=== PATIENT | female | born 1995 | race Caucasian/White ===

== ENCOUNTER 2019-05-16 12:15 | Observation (INO) | payer BC ==
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
[2019-05-16] MEDS ORDERED: Lactated Ringers 1,000 ML IV ONE (12:38)
[2019-05-16 13:20] LABS: CHLORIDE,CL 104 mmol/L (98-107); SODIUM,NA 137 mmol/L (136-145)
[2019-05-16] MEDS ORDERED: Magnesium Sulfate/Water 2 GM in Premix Bag 1 BAG IV ONE (15:08)
[2019-05-16] MEDS: Lactated Ringers 1,000 ML IV SCH (15:22)
[2019-05-16] MEDS: Sodium Chloride 0.9% 10 ML Syringe FLUSH PRN (15:40)
[2019-05-16] MEDS: Sodium Chloride 0.9% 10 ML Syringe FLUSH SCH (19:52)
[2019-05-17] MEDS: Lactated Ringers 1,000 ML IV SCH ×3 (04:27→19:17)
[2019-05-17 07:52] LABS: CHLORIDE,CL 107 mmol/L (98-107); SODIUM,NA 140 mmol/L (136-145)
[2019-05-17] MEDS: Prenatal Multivitamin with Calcium/Folic Acid/Iron Tab PO SCH (08:10)
[2019-05-17] MEDS: FLUoxetine 20 MG Cap PO SCH (08:11)
[2019-05-17] MEDS: Sodium Chloride 0.9% 10 ML Syringe FLUSH SCH ×2 (08:11→19:16)
[2019-05-17] MEDS: Magnesium Oxide 400 MG Tab PO SCH (08:13)
[2019-05-17] MEDS ORDERED: Magnesium Sulfate/Water 2 GM in Premix Bag 1 BAG IV ONE ×2 (09:32→18:00)
[2019-05-17] MEDS: Acetaminophen 325 MG Tab PO PRN ×2 (13:00→19:30)
--- NOTE | 2019-05-17 14:30 | PCM.PN ---
- General Info Date of Service: 05/17/19 Admission Dx/Problem (Free Text): 1. Intrauterine with possible labor 2. Pelvic pain Functional Status: Reports: Pain Controlled, Tolerating Diet, Ambulating, Urinating. Denies: New Symptoms, Incentive Spirometry Pain Score: 2 - Review of Systems General: Reports: No Symptoms. Denies: Fever, Weakness, Fatigue, Malaise, Chills, Night Sweats, Appetite (Appetite good) HEENT: Denies: Dysphasia, Ear Pain, Eye Pain, Headaches, Post Nasal Drip, Sinus Congestion, Sore Throat, Rhinitis, Visual Changes Pulmonary: Reports: No Symptoms. Denies: Shortness of Breath, Pleuritic Chest Pain, Cough, Sputum, Hemoptysis, Wheezing Cardiovascular: Reports: No Symptoms. Denies: Chest Pain, Palpitations, Dyspnea on Exertion, Orthopnea, PND, Edema Gastrointestinal: Reports: Other (Occasional nonspecific right pelvic discomfort , which is reproducible.). Denies: Abdominal Pain, Constipation, Decreased Appetite, Diarrhea, Difficulty Swallowing, Flatus, Hematochezia, Melena, Nausea , Vomiting Genitourinary: Reports: No Symptoms. Denies: Dysuria, Frequency, Burning, Pain , Urgency, Incontinence, Hematuria, Retention, Flank Pain, Other Musculoskeletal: Reports: No Symptoms. Denies: Neck Pain, Shoulder Pain, Arm Pain, Back Pain Skin: Reports: No Symptoms. Denies: Jaundice, Diaphoresis, Bruising, Pruritis, Rash Neurological: Reports: No Symptoms. Denies: Confusion, Dizziness, Headache, Numbness, Paresthesia, Tingling, Tremors, Difficulty Walking, Weakness Psychiatric: Denies: Confusion, Depression, Anxiety, Agitation, Cravings, Hallucinations, Homicidal Ideation - Patient Data Vitals - Most Recent: Last Vital Signs Temp 36.6 C 05/17/19 13:23 Pulse 90 05/17/19 13:23 Resp 16 05/17/19 13:23 BP 131/76 05/17/19 13:23 Pulse Ox 100 05/17/19 13:23 Vital Signs - 24 hr 05/16/19 05/16/19 05/16/19 15:03 15:37 15:52 Temperature [ Temporal] Pulse, 84 82 Peripheral [ Pulse Oximetry] Respiratory 16 16 Rate Blood Pressure [Left Upper Arm ] Blood Pressure 112/52 L 110/59 L [Right Arm] O2 Sat by Pulse 100 100 100 Oximetry 05/16/19 05/16/19 05/16/19 16:25 16:40 17:10 Temperature [ Temporal] Pulse, 95 97 98 Peripheral [ Pulse Oximetry] Respiratory 18 16 16 Rate Blood Pressure [Left Upper Arm ] Blood Pressure 121/71 113/62 112/61 [Right Arm] O2 Sat by Pulse 100 100 100 Oximetry 05/16/19 05/17/19 05/17/19 19:49 00:00 04:00 Temperature [ 37.1 C 36.9 C 36.6 C Temporal] Pulse, 89 77 74 Peripheral [ Pulse Oximetry] Respiratory 16 16 16 Rate Blood Pressure 105/51 L 116/54 L 110/58 L [Left Upper Arm ] Blood Pressure [Right Arm] O2 Sat by Pulse 98 98 100 Oximetry 05/17/19 05/17/19 05/17/19 07:35 09:46 11:41 Temperature [ 36.7 C 36.6 C 36.5 C Temporal] Pulse, 79 84 82 Peripheral [ Pulse Oximetry] Respiratory 16 17 16 Rate Blood Pressure 116/61 126/70 122/64 [Left Upper Arm ] Blood Pressure [Right Arm] O2 Sat by Pulse 98 100 100 Oximetry 05/17/19 13:23 Temperature [ 36.6 C Temporal] Pulse, 90 Peripheral [ Pulse Oximetry] Respiratory 16 Rate Blood Pressure 131/76 [Left Upper Arm ] Blood Pressure [Right Arm] O2 Sat by Pulse 100 Oximetry Weight - Most Recent: 76.748 kg I&O - Last 24 Hours: Intake & Output 05/16/19 05/17/19 05/17/19 22:59 06:59 14:59 Intake Total 1049 1456 1030 Output Total 413 535 8532 Balance 249 756 -220 Imaging Impressions - Last 24 Hours: heart monitor shows stable heart tones in the 140 50s with good variability and no decelerations noted. Note shortly after placement of the patient to observation status she began having some intermittent irregular uterine contractions by monitor about 7 minutes apart, although the patient did not feel these contractions. No further uterine contractions noted since completion of IV magnesium sulfate on admission. Lab Results Last 24 Hours: Laboratory Results - last 24 hr 05/17/19 05/17/19 Range/Units 07:15 07:15 WBC 9.7 (4.0-10.2) K/uL RBC 3.35 L (3.77-5.09) M/uL Hgb 10.4 L (11.7-15.5) g/dL Hct 31.4 L (34.0-46.0) % MCV 93.7 (84.0-98.0) fL MCH 31.0 (28.2-33.3) pg MCHC 33.1 (31.7-36.0) g/dL RDW 12.8 (11.2-14.1) % Plt Count 190 (150-350) K/uL Neut % (Auto) 78.6 (45.0-80.0) % Lymph % (Auto) 14.6 (10.0-50.0) % [place] % (Auto) 5.6 (2.0-14.0) % Eos % (Auto) 1.0 (0.0-5.0) % Baso % (Auto) 0.2 (0.0-2.0) % Neut # (Auto) 7.65 H (1.40-7.00) K/uL Lymph # (Auto) 1.42 (0.50-3.50) K/uL [place] # (Auto) 0.55 (0.00-1.00) K/uL Eos # (Auto) 0.10 (0.00-0.50) K/uL Baso # (Auto) 0.02 (0.00-0.20) K/uL Sodium 140 (136-145) mmol/L Potassium 4.1 (3.5-5.1) mmol/L Chloride 107 (98-107) mmol/L Carbon Dioxide 25.8 (21.0-32.0) mmol/L BUN 6 L (7-18) mg/dL Creatinine 0.64 (0.51-1.17) mg/dL Est Cr Clr Drug Dosing 125.12 mL/min Estimated GFR (MDRD) > 60 mL/min Glucose 80 (74-106) mg/dL Calcium 7.9 L (8.5-10.1) mg/dL Magnesium 1.5 L (1.8-2.4) mg/dL Total Bilirubin 0.1 L (0.2-1.0) mg/dL AST 17 (15-37) U/L ALT 15 (12-78) U/L Alkaline Phosphatase 84 (46-116) IU/L Total Protein 5.6 L (6.4-8.2) g/dL Albumin 2.3 L (3.4-5.0) g/dL Free T4 0.74 L (0.76-1.46) ng/dL Reinaldo Results Last 24 Hours: Microbiology 05/16/19 12:30 Wet Prep - Final Vagina Wet prep was negative. Urine specimen set up for culture and sensitivity with results pending. Med Orders - Current: Current Medications Acetaminophen (Tylenol) 650 mg PO Q4H PRN PRN Reason: Pain Last Admin: 05/17/19 13:00 Dose: 650 mg Fluoxetine HCl (Prozac) 20 mg PO DAILY [facility] Last Admin: 05/17/19 08:11 Dose: 20 mg Lactated Ringer's (Ringers, Lactated) 1,000 mls @ 80 mls/hr IV ASDIRECTED PHILIP Last Admin: 05/17/19 04:27 Dose: 80 mls/hr Magnesium Sulfate 2 gm/ Premix 50 mls @ 50 mls/hr IV ONETIME ONE Stop: 05/17/19 18:59 Magnesium Oxide (Magnesium Oxide) 400 mg PO DAILY [facility] Last Admin: 05/17/19 08:13 Dose: 400 mg Prenat Multivit/[place]/Iron/Folic Ac ( Plus Iron) 1 each PO DAILY [facility] Last Admin: 05/17/19 08:10 Dose: 1 each Sodium Chloride (Saline Flush) 10 ml FLUSH ASDIRECTED PRN PRN Reason: Keep Vein Open Last Admin: 05/16/19 15:40 Dose: 10 ml Sodium Chloride (Saline Flush) 10 ml FLUSH Q12HR [facility] Last Admin: 05/17/19 08:11 Dose: 10 ml Discontinued Medications Lactated Ringer's (Ringers, Lactated) 1,000 mls @ 999 mls/hr IV .BOLUS ONE Stop: 05/16/19 13:38 Last Admin: 05/16/19 13:09 Dose: 999 mls/hr Magnesium Sulfate 2 gm/ Premix 50 mls @ 50 mls/hr IV ONETIME ONE Stop: 05/16/19 16:07 Last Admin: 05/16/19 15:40 Dose: 50 mls/hr Magnesium Sulfate 2 gm/ Premix 50 mls @ 50 mls/hr IV ONETIME ONE Stop: 05/17/19 10:31 Last Admin: 05/17/19 10:17 Dose: 50 mls/hr - Exam Quality Assessment: No: Supplemental Oxygen, Central Line/PICC, Urine Catheter, DVT Prophylaxis, Skin Breakdown General: Alert, Oriented, Cooperative, No Acute Distress HEENT: Pupils Equal, Pupils Reactive, EOMI, Mucous Membr. Moist/[place] Neck: Supple, Trachea Midline, No JVD, No Thyromegaly, +2 Carotid Pulse wo Bruit. No: Lymphadenopathy Lungs: Clear to Auscultation, Normal Respiratory Effort. No: Rub, Wheezing Cardiovascular: Regular Rate, Regular Rhythm, No Murmurs. No: Gallops, Rubs GI/Abdominal Exam: Normal Bowel Sounds, Soft, Non-Tender, No Organomegaly, No Distention, No Abnormal Bruit, No Mass, Pelvis Stable (With no significant pelvic tenderness). No: Guarding, Rebound (Female) Exam: Other (No evidence of uterine contractions by palpation with active movements noted) Back Exam: Normal Inspection, Full Range of Motion. No: CVA Tenderness (L), CVA Tenderness (R), Muscle Spasm Extremities: Normal Inspection, Normal Range of Motion, Non-Tender, No Pedal Edema, Normal Capillary Refill. No: Jason's Sign Peripheral Pulses: 2+: Radial (L), Radial (R), Dorsalis Pedis (L), Dorsalis Pedis (R) Skin: Warm, Dry, Intact Neurological: No New Focal Deficit Psy/Mental Status: Alert, Normal Affect, Normal Mood. No: Agitated, Hallucinations, Withdrawal Symptoms Sepsis Event Note - Evaluation Sepsis Screening Result: No Definite Risk - Focused Exam Vital Signs: Vital Signs Temp Pulse Resp BP Pulse Ox 05/17/19 13:23 36.6 C 90 16 131/76 100 05/17/19 11:41 36.5 C 82 16 122/64 100 05/17/19 09:46 36.6 C 84 17 126/70 100 05/17/19 07:35 36.7 C 79 16 116/61 98 05/17/19 04:00 36.6 C 74 16 110/58 L 100 Date Exam was Performed: 05/17/19 Time Exam was Performed: 14:25 - Problem List & Annotations (1) Intrauterine SNOMED Code(s): 22285614 Code(s): Z34.90 - ENCNTR FOR SUPRVSN OF NORMAL , UNSP, UNSP TRIMESTER Status: Chronic Priority: High Current Visit: Yes Annotation/ Comment:: Although no uterine contractions were noted in the emergency room some brief initial uterine contractions about every 7 minutes did occur shortly after placement into observation status. These did quickly resolve after 2 g of IV magnesium sulfate were given with contractions not felt by the patient. Otherwise stable monitoring since that time as above. Note persistent winter blizzard and strict no traveling restrictions at this time. Patient will be continued on observation status with this continuous monitoring to be changed to every 2 hours initially and then possibly every 4 hours later today. Intrauterine at 26 0/7 weeks gestation with estimated EDC of 08/22/19 by ultrasound. Patient does have a previous history of irregular menses with exact LMP unknown. No direct signs of labor by evaluation in the emergency room as above. [facility] consultation depending on her clinical course and likely prior to patient's planned discharge tomorrow. Note that the patient did have a somewhat short cervix at 2 cm at time of her last OB ultrasound on with repeat ultrasound apparently scheduled for 05/17. Note that the patient was not previously placed on any pelvic rest or other activity restrictions, however she should not resume any significant physical activity or pelvic stimulation until otherwise released by her [employer] after discharge. Her low back pain nonspecific right pelvic pain were reproducible and likely secondary to her current and/or recent snow shoveling, etc.. Patient was given a 1 L lactated Ringer's IV bolus in the emergency room as a precaution for labor with IV fluids continued during early portions of this hospitalization. Note normal mild leukocytosis and anemia of with resolution of leukocytosis on 04/20, however mild progressive anemia likely secondary to rehydration effect on 05/17. (2) Pelvic pain SNOMED Code(s): 30611561 Code(s): R10.2 - PELVIC AND PERINEAL PAIN Status: Acute Priority: High Current Visit: Yes Annotation/Comment:: As above. No evidence of labor on 05/17 (3) Hypomagnesemia SNOMED Code(s): 427675652 Code(s): E83.42 - HYPOMAGNESEMIA Status: Acute Priority: Medium Current Visit: Yes Onset Date: 05/16/19 Annotation/Comment:: Initiated oral magnesium oxide in the a.m. of 05/17 with initial IV magnesium sulfate infusion shortly after placement into observation status. Note persistent moderate hypomagnesemia despite above therapy with additional IV magnesium sulfate 2 g infusions twice a day initiated on 05/17. (4) Allergic rhinitis SNOMED Code(s): 78036853 Code(s): J30.9 - ALLERGIC RHINITIS, UNSPECIFIED Status: Chronic Priority : Medium Current Visit: Yes Qualifiers: Allergic rhinitis trigger: pollen Allergic rhinitis seasonality: seasonal Qualified Code(s): J30.1 - Allergic rhinitis due to pollen Annotation/Comment:: Stable by history (5) Hypoalbuminemia SNOMED Code(s): 766666830 Code(s): E88.09 - OTH DISORDERS OF PLASMA-PROTEIN METABOLISM, NEC Status: Acute Priority: Medium Current Visit: Yes Onset Date: 05/16/19 Annotation/Comment:: Likely secondary to current . Observe for now. (6) Mixed anxiety depressive disorder SNOMED Code(s): 629584703 Code(s): F41.8 - OTHER SPECIFIED ANXIETY DISORDERS Status: Chronic Priority: Medium Current Visit: Yes Annotation/Comment:: Improved on admission. Moderate control based on initial examine in the emergency room today 's exam. Continue to observe closely by regular providers. (7) Peptic reflux disease SNOMED Code(s): 207392022 Code(s): K21.9 - GASTRO-ESOPHAGEAL REFLUX DISEASE WITHOUT ESOPHAGITIS Status: Chronic Priority: Medium Current Visit: Yes Annotation/Comment:: Stable by history (8) Tobacco abuse counseling SNOMED Code(s): 309007075, 659091148, 094352329 Code(s): Z71.6 - TOBACCO ABUSE COUNSELING Status: Chronic Priority: Medium Current Visit: Yes Annotation/Comment:: She was extensively counseled on tobacco smoke exposure with tobacco smoke cessation information to be provided at discharge for her . (9) Hyperthyroidism SNOMED Code(s): 58707169 Code(s): E05.90 - THYROTOXICOSIS, UNSP WITHOUT THYROTOXIC CRISIS OR STORM Status: Chronic Priority: Medium Current Visit: Yes Annotation/Comment:: Likely secondary to her . Observe for now with free T3 results still pending secondary to this study being conducted in an outside laboratory. Free T4 on 05/17 was decreased. - Problem List Review Problem List Initiated/Reviewed/Updated: Yes - My Orders Last 24 Hours: My Active Orders 05/16/19 15:01 Acetaminophen [Tylenol] 650 mg PO Q4H PRN 05/16/19 15:03 Communication Order [RC] ROUTINE Communication Order [RC] ROUTINE Height and Weight [RC] DAILY Intake and Output Strict [RC] 06,18 Oxygen Therapy [RC] .PRN Pulse Oximetry [RC] .PRN Up With Assistance [RC] ASDIRECTED GM Immunization Reflex [OM.PC] Click To Edit 05/16/19 15:09 Resuscitation Status Routine 05/16/19 15:15 Lactated Ringers [Ringers, Lactated] 1,000 ml IV ASDIRECTED 05/16/19 20:00 Sodium Chloride 0.9% [Saline Flush] 10 ml FLUSH Q12HR 05/16/19 Dinner Regular Diet [DIET] 05/17/19 07:15 FREE T3 [REF] Routine 05/17/19 08:00 FLUoxetine [PROzac] 20 mg PO DAILY Magnesium Oxide 400 mg PO DAILY Vit with Ca/FA/Iron [ Plus Iron] 1 each PO DAILY 05/17/19 09:43 Vital Signs [RC] Q2HR 05/17/19 09:45 Monitoring [RC] Q2HR 05/17/19 18:00 Magnesium Sulfate/Water [Magnesium Sulfate in Water Premix] 2 gm Premix Bag 1 bag IV ONETIME 05/18/19 05:11 BASIC METABOLIC PANEL,BMP [CHEM] Routine CBC WITH AUTO DIFF [HEME] Routine MAGNESIUM [CHEM] Routine - Assessment Assessment:: As above. - Plan Plan:: As above. Extensive precautions were given to the patient and her mother, who are in agreement with the treatment plan. Planned hospital discharge tomorrow as above.
[2019-05-18 07:08] VITALS: BP 106/60; PULSE 58
[2019-05-18] MEDS: FLUoxetine 20 MG Cap PO SCH (07:09)
[2019-05-18] MEDS: Sodium Chloride 0.9% 10 ML Syringe FLUSH SCH (07:09)
[2019-05-18] MEDS: Prenatal Multivitamin with Calcium/Folic Acid/Iron Tab PO SCH (07:09)
[2019-05-18] MEDS: Magnesium Oxide 400 MG Tab PO SCH (07:09)
[2019-05-18 08:20] LABS: CHLORIDE,CL 107 mmol/L (98-107); SODIUM,NA 141 mmol/L (136-145)
[2019-05-18] MEDS ORDERED: Magnesium Sulfate/Water 4 GM in Premix Bag 1 BAG IV ONE (09:10)
[2019-05-18] MEDS: Sodium Chloride 0.9% 10 ML Syringe FLUSH PRN (09:27)
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
== END 2019-05-18 12:10 | disposition home or self-care (01) ==
LOC: LL.ED 12:15 → LL.MS 13:55 → UNDOADMOB 13:55 → LL.MS 14:56
PROVIDERS: ADMIT Family Medicine; ATTEND Family Medicine
DX: O47.02 False labor before 37 completed weeks of gestation, second trimester (principal); O99.012 Anemia complicating pregnancy, second trimester; D64.9 Anemia, unspecified; O99.112 Other diseases of the blood and blood-forming organs and certain disorders involving the immune mechanism complicating pregnancy, second trimester; D72.829 Elevated white blood cell count, unspecified; O99.512 Diseases of the respiratory system complicating pregnancy, second trimester; J30.9 Allergic rhinitis, unspecified; O99.282 Endocrine, nutritional and metabolic diseases complicating pregnancy, second trimester; E88.09 Other disorders of plasma-protein metabolism, not elsewhere classified; E83.42 Hypomagnesemia; E05.90 Thyrotoxicosis, unspecified without thyrotoxic crisis or storm; O99.342 Other mental disorders complicating pregnancy, second trimester; F41.8 Other specified anxiety disorders; O99.612 Diseases of the digestive system complicating pregnancy, second trimester; K21.9 Gastro-esophageal reflux disease without esophagitis; Z3A.26 26 weeks gestation of pregnancy; Z71.6 Tobacco abuse counseling
CPT/HCPCS: 36415; 80048; 80053; 81001; 83735; 84439; 84443; 84481; 85025; 85610; 85730; 87086; 87210; A9270-GY; J3475; J7120

== ENCOUNTER 2021-01-18 21:14 | Emergency (ER) | payer BC, MEDICAID ==
[2021-01-18] MEDS ORDERED: Ketorolac 30 MG/ML SDV IM ONE (21:22)
[2021-01-18] MEDS ORDERED: Orphenadrine 60 MG/2 ML Inj IM STA (21:22)
[2021-01-18 21:30] VITALS: BP 135/66; PULSE 73
[2021-01-18 21:54] LABS: ANION GAP 12.5 meq/L (7-15); CHLORIDE,CL 104 mmol/L (98-107); SODIUM,NA 140 mmol/L (136-145)
--- NOTE | 2021-01-18 22:42 | EDM.PDOC ---
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 This patient is a 1 para 1. She has not had a period in 2 months. She is unsure if she is . Today she noticed that she had a small amount of vaginal spotting. Tonight she had a couple blood clots. She has had quite a bit of cramping that has been somewhat controlled with Tylenol. She has no other pain it is more cramping in nature and not constant. She has had no chest pain or shortness of breath or difficulty breathing. No other abdominal pain nausea or vomiting. No weakness dizziness lightheadedness. She is not currently on anything for contraception. 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 Seasonal allergic rhinitis. Cardiovascular History: Reports: Heart Murmur, Other (See Below) Other Cardiovascular History: Probable benign functional heart murmur with no significant workup. She does not know her cholesterol status. 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 History of ovarian cysts. Musculoskeletal History: Reports: None Neurological History: Reports: Concussion, Head Trauma, Other (See Below) Other Neuro History: Possible head concussion in 2016. Psychiatric History: Reports: Anxiety, Depression Hematologic History: Reports: None Immunologic History: Reports: None Dermatologic History: Reports: Other (See Below) Other Dermatologic History: Acne vulgaris. - Infectious Disease History Infectious Disease History: Reports: None - Past Surgical History Head Surgeries/Procedures: Reports: None HEENT Surgical History: Reports: Other (See Below) Other HEENT Surgeries/Procedures: Previous nasal laryngoscopy is 2. Cardiovascular Surgical History: Reports: None Respiratory Surgical History: Reports: None GI Surgical History: Reports: None Female Surgical History: Reports: None Endocrine Surgical History: Reports: None Neurological Surgical History: Reports: None Musculoskeletal Surgical History: Reports: Carpal Tunnel, Ganglion Cyst Oncologic Surgical History: Reports: None Dermatological Surgical History: Reports: None - Past Imaging History Past Imaging History: Reports: CAT Scan ( CT of the brain and C-spine on 03/12/17 and 02/19/16. CT of the abdomen and pelvis on 08/21/15.), Ultrasound (Last OB ultrasound on 04/20/19 with initial OB ultrasound on 12/29/18. Abdominal and pelvic ultrasounds on 08/28/15.) Social & Family History - Family History HEENT: Reports: None Cardiac: Reports: Bypass, CAD, IL, Other (See Below) Other Cardiac Family History: paternal grandfather with history of IL and unknown cardiac procedure in his 60s. Maternal uncle with CABG in his early 40s. Respiratory: Reports: None GI: Reports: None : Reports: None OBGYN: Reports: Other (See Below) Other OBGYN Family History: Paternal grandmother with hysterectomy for unknown reason. Musculoskeletal: Reports: None Psychiatric: Reports: None Endocrine/Metabolic: Reports: Diabetes, type II, Other (See Below) Other Endocrine/Metabolic Family History: Maternal grandmother with AODM. Hematologic: Reports: None Immunologic: Reports: None Dermatologic: Reports: None Oncologic: Reports: None - Tobacco Use Tobacco Use Status *Q: Never Tobacco User - Caffeine Use Caffeine Use: Reports: Soda - Recreational Drug Use Recreational Drug Use: No - Sexual History Sexual History: Reports: Single Partner - Living Situation & Occupation Living situation: Reports: (September 2018), with Family Occupation: Employed ([employer] ED ROS GENERAL - Review of Systems Review Of Systems: Comprehensive ROS is negative, except as noted in HPI. ED EXAM, GI/ABD - Physical Exam Exam: See Below Exam Limited By: No Limitations General Appearance: Alert, WD/WN, No Apparent Distress Ears: Normal External Exam Nose: Normal Inspection Throat/Mouth: Normal Inspection Head: Atraumatic, Normocephalic Neck: Normal Inspection, Supple, Non-Tender Respiratory/Chest: No Respiratory Distress, Lungs Clear, Normal Breath Sounds, No Accessory Muscle Use, Chest Non-Tender Cardiovascular: Normal Peripheral Pulses, Regular Rate, Rhythm GI/Abdominal Exam: Normal Bowel Sounds, Soft, Non-Tender, No Mass (Female) Exam: Deferred Rectal (Female) Exam: Deferred Back Exam: Normal Inspection Extremities: Normal Inspection, Normal Range of Motion, No Pedal Edema, Normal Capillary Refill Neurological: Alert, Oriented, CN II-XII Intact, Normal Cognition, Normal Gait, No Motor/Sensory Deficits Psychiatric: Normal Affect, Normal Mood Skin Exam: Warm, Dry, Intact, Normal Color Course - Vital Signs Last Recorded V/S: Last Vital Signs Temp 97.3 F 01/18/21 21:29 Pulse 73 01/18/21 21:29 Resp 14 01/18/21 21:29 BP 135/66 01/18/21 21:29 Pulse Ox 100 01/18/21 21:29 - Orders/Labs/Meds Labs: Laboratory Tests 01/18/21 01/18/21 01/18/21 Range/Units 21:30 21:30 21:35 WBC 8.8 (4.0-10.2) K/uL RBC 4.83 (3.77-5.09) M/uL Hgb 14.1 (11.7-15.5) g/dL Hct 41.7 (34.0-46.0) % MCV 86.3 (84.0-98.0) fL MCH 29.2 (28.2-33.3) pg MCHC 33.8 (31.7-36.0) g/dL RDW 12.5 (11.2-14.1) % Plt Count 244 (150-350) K/uL Neut % (Auto) 65.9 (45.0-80.0) % Lymph % (Auto) 24.2 (10.0-50.0) % [place] % (Auto) 6.3 (2.0-14.0) % Eos % (Auto) 3.4 (0.0-5.0) % Baso % (Auto) 0.2 (0.0-2.0) % Neut # (Auto) 5.81 (1.40-7.00) K/uL Lymph # (Auto) 2.14 (0.50-3.50) K/uL [place] # (Auto) 0.56 (0.00-1.00) K/uL Eos # (Auto) 0.30 (0.00-0.50) K/uL Baso # (Auto) 0.02 (0.00-0.20) K/uL Sodium (136-145) mmol/L Potassium (3.5-5.1) mmol/L Chloride (98-107) mmol/L Carbon Dioxide (21.0-32.0) mmol/L Anion Gap (7-15) meq/L BUN (7-18) mg/dL Creatinine (0.51-1.17) mg/dL Est Cr Clr Drug Dosing mL/min Estimated GFR (MDRD) mL/min Glucose (70-99) mg/dL Calcium (8.5-10.1) mg/dL HCG, Quant mIU/mL Specimen Type Urinvoid Urine Color Yellow Urine Appearance Clear Urine pH 7.0 (5.0-9.0) Ur Specific [place] 1.015 (1.005-1.030) Urine Protein Negative (NEGATIVE) mg/dL Urine Glucose (UA) Negative (NEGATIVE) mg/dL Urine Ketones Negative (NEGATIVE) mg/dL Urine Occult Blood Moderate H (NEGATIVE) Urine Nitrite Negative (NEGATIVE) Urine Bilirubin Negative (NEGATIVE) Urine Urobilinogen 0.2 (0.2-1.0) E.U./dL Ur Leukocyte Esterase Negative (NEGATIVE) Urine RBC 0-5 /HPF Urine WBC Not seen /HPF Ur Epithelial Cells Few /LPF Urine Bacteria Rare (NONE TO FEW) /HPF Urine HCG, Qual Positive Blood Type 01/18/21 01/18/21 01/18/21 Range/Units 21:35 21:35 21:35 WBC (4.0-10.2) K/uL RBC (3.77-5.09) M/uL Hgb (11.7-15.5) g/dL Hct (34.0-46.0) % MCV (84.0-98.0) fL MCH (28.2-33.3) pg MCHC (31.7-36.0) g/dL RDW (11.2-14.1) % Plt Count (150-350) K/uL Neut % (Auto) (45.0-80.0) % Lymph % (Auto) (10.0-50.0) % [place] % (Auto) (2.0-14.0) % Eos % (Auto) (0.0-5.0) % Baso % (Auto) (0.0-2.0) % Neut # (Auto) (1.40-7.00) K/uL Lymph # (Auto) (0.50-3.50) K/uL [place] # (Auto) (0.00-1.00) K/uL Eos # (Auto) (0.00-0.50) K/uL Baso # (Auto) (0.00-0.20) K/uL Sodium 140 (136-145) mmol/L Potassium 3.6 (3.5-5.1) mmol/L Chloride 104 (98-107) mmol/L Carbon Dioxide 23.5 (21.0-32.0) mmol/L Anion Gap 12.5 (7-15) meq/L BUN 15 (7-18) mg/dL Creatinine 1.09 (0.51-1.17) mg/dL Est Cr Clr Drug Dosing 72.23 mL/min Estimated GFR (MDRD) > 60 mL/min Glucose 116 H (70-99) mg/dL Calcium 9.6 (8.5-10.1) mg/dL HCG, Quant 5499 mIU/mL Specimen Type Urine Color Urine Appearance Urine pH (5.0-9.0) Ur Specific [place] (1.005-1.030) Urine Protein (NEGATIVE) mg/dL Urine Glucose (UA) (NEGATIVE) mg/dL Urine Ketones (NEGATIVE) mg/dL Urine Occult Blood (NEGATIVE) Urine Nitrite (NEGATIVE) Urine Bilirubin (NEGATIVE) Urine Urobilinogen (0.2-1.0) E.U./dL Ur Leukocyte Esterase (NEGATIVE) Urine RBC /HPF Urine WBC /HPF Ur Epithelial Cells /LPF Urine Bacteria (NONE TO FEW) /HPF Urine HCG, Qual Blood Type O POSITIVE Meds: Medications Discontinued Medications Generic Name Dose Route Start Last Admin Trade Name Freq PRN Reason Stop Dose Admin Ketorolac Tromethamine 30 mg 01/18/21 21:22 01/18/21 21:40 Ketorolac 30 Mg/Ml Sdv IM 01/18/21 21:23 30 mg ONETIME ONE Administration Orphenadrine Citrate 60 mg 01/18/21 21:22 01/18/21 21:39 Orphenadrine 60 Mg/2 Ml Inj IM 01/18/21 21:23 60 mg NOW STA Administration - Re-Assessments/Exams Free Text/Narrative Re-Assessment/Exam: The patient was given 30 mg of ketorolac IM. Orphenadrine 60 mg IM. Her CBC is unremarkable. Her BMP has a glucose of 116 otherwise normal. Her urine is positive hCG. Her urinalysis is positive for blood otherwise negative. Her quantitative hCG is 5499 Blood type is O+. I informed the patient that she is currently but most likely having a threatened miscarriage at this time. I do not have concerns for ectopic as she does not have severe pain on palpation and her hCG is within range of the time. Of conception. If she was just spotting and did not have clots this may be implantation bleeding. Although she has had quite a bit of clots and cramping and this is most likely a miscarriage. Tylenol ibuprofen for pain. Follow-up with primary care provider on Friday or Friday for recheck. Return if anything new or worse. Miscarriages can be quite uncomfortable so she was given some hydrocodone as well for a very short course and if the does continue the short course will be safe for her during . Discharge instructions as below are explained to the patient she was comfortable with this plan and her questions were answered. Departure - Departure Time of Disposition: 22:40 Disposition: Home, Self-Care 01 Clinical Impression: Miscarriage, threatened, early - Discharge Information Prescriptions: Hydrocodone/Acetaminophen [HYDROcodone-Acetaminophen 5-325 MG] 1 each PO Q6HR PRN #9 tab PRN Reason: Pain Instructions: Threatened Miscarriage, [id number], Pain Medicine Instructions, [id number] Referrals: Cathy Lucas PA-C [Primary Care Provider] - Forms: ED Department Discharge Additional Instructions: Tylenol and or Ibuprofen as needed for pain. If pain not controlled with above. [place] 1 tablet every 6 hrs with food as needed for pain. Caution sedation. RX sent to [facility]. Recheck friday with PCP for HCG levels. Return to the ED if new or worsening symptoms. Sepsis Event Note (ED) - Evaluation Sepsis Screening Result: No Definite Risk
== END 2021-01-18 22:50 | disposition home or self-care (01) ==
LOC: LL.ED 21:14
DX: O20.0 Threatened abortion (principal); Z3A.01 Less than 8 weeks gestation of pregnancy
CPT/HCPCS: 36415; 80048; 81001; 81025; 84702; 85025; 86900; 86901; 96372; 99284; J1885; J2360

== ENCOUNTER 2022-10-23 14:59 | Emergency (ER) | payer BC ==
[2022-10-23] MEDS ORDERED: Sodium Chloride 0.9% 10 ML Syringe FLUSH PRN (15:07)
[2022-10-23 15:19] LABS: BASOPHILS ABSOLUTE AUTO 0.01 K/uL (0.00-0.20); BASOPHILS PERCENT AUTO 0.1 % (0.0-2.0); EOSINOPHILS ABSOLUTE AUTO 0.09 K/uL (0.00-0.50); EOSINOPHILS PERCENT AUTO 1.2 % (0.0-5.0); HEMATOCRIT 38.8 % (34.0-46.0); HEMOGLOBIN 13.7 g/dL (11.7-15.5); LYMPHOCYTES ABSOLUTE AUTO 1.42 K/uL (0.50-3.50); LYMPHOCYTES PERCENT AUTO 18.4 % (10.0-50.0); MEAN CORPUSCULAR HEMOGLOBIN 29.7 pg (28.2-33.3); MEAN CORPUSCULAR HGB CONC 35.3 g/dL (31.7-36.0); MONOCYTES ABSOLUTE AUTO 0.31 K/uL (0.00-1.00); NEUTROPHILS ABSOLUTE AUTO 5.87 K/uL (1.40-7.00); NEUTROPHILS PERCENT AUTO 76.3 % (45.0-80.0); PLATELET COUNT,PLT 209 K/uL (150-350); RED BLOOD CELL COUNT 4.62 M/uL (3.77-5.09); RED CELL DISTRIBUTION WIDTH 12.6 % (11.2-14.1); WHITE BLOOD CELL COUNT,WBC 7.7 K/uL (4.0-10.2)
[2022-10-23] MEDS: Sodium Chloride 0.9% 1,000 ML IV ONE (15:36)
[2022-10-23 15:39] LABS: APPEARANCE,URINE CLEAR; BILIRUBIN,URINE NEGATIVE (NEGATIVE); COLOR,URINE YELLOW; GLUCOSE,URINE NEGATIVE (NEGATIVE); KETONES,URINE 15 mg/dL (NEGATIVE); LEUKOCYTE ESTERASE,URINE NEGATIVE (NEGATIVE); NITRITE,URINE NEGATIVE (NEGATIVE); OCCULT BLOOD,URINE NEGATIVE (NEGATIVE); PH,URINE 7.5 (5.0-9.0); PROTEIN,URINE NEGATIVE (NEGATIVE); UROBILINOGEN,URINE 0.2 E.U./dL (0.2-1.0)
[2022-10-23 15:41] LABS: ALBUMIN 3.4 g/dL (3.4-5.0); ANION GAP 9.5 meq/L (7-15); BILIRUBIN TOTAL 0.3 mg/dL (0.2-1.0); CARBON DIOXIDE,CO2 25.5 mmol/L (21.0-32.0); CREATININE 0.71 mg/dL (0.51-1.17); EST CRCL DRUG DOSING (CG) 105.7 mL/min; POTASSIUM,K 3.6 mmol/L (3.5-5.1); PROTEIN TOTAL,TP 7.2 g/dL (6.4-8.2)
[2022-10-23 16:02] VITALS: BP 111/63; PULSE 63
== END 2022-10-23 17:10 | disposition home or self-care (01) ==
LOC: LL.ED 14:59
DX: E86.0 Dehydration (principal); F41.9 Anxiety disorder, unspecified
CPT/HCPCS: 36415; 80053; 81003; 82550; 84484; 85025; 93005; 96360; 99284-25; J7030

== ENCOUNTER 2023-06-19 09:15 | Day surgery (SDC) | payer BC, OTHER ==
[~2023-06-19 09:15] MED LIST: Midazolam 1 MG/ML 2 ML SDV ONE; Propofol 200 MG/20 ML SDV ONE; Sodium Chloride 0.9% 10 ML Syringe FLUSH PRN
[2023-06-19] MEDS: Lactated Ringers 1,000 ML IV SCH (09:26)
[2023-06-19] MEDS ORDERED: Midazolam 1 MG/ML 2 ML SDV ONE (10:28)
[2023-06-19] MEDS ORDERED: Lidocaine 2% 5 ML SDV ONE (10:32)
[2023-06-19] MEDS ORDERED: Glycopyrrolate 0.2 MG/ML SDV IVPUSH ONE (10:32)
[2023-06-19 11:48] VITALS: BP 113/50; PULSE 74
== END 2023-06-19 11:36 | disposition home or self-care (01) ==
LOC: LL.SDS 09:15
PROVIDERS: ATTEND Surgery
DX: K20.0 Eosinophilic esophagitis (principal); K21.9 Gastro-esophageal reflux disease without esophagitis; F41.9 Anxiety disorder, unspecified; F32.A Depression, unspecified; Z79.899 Other long term (current) drug therapy
CPT/HCPCS: 00731; 36415; 43239; 84703; J2250; J2704; J3490; J7120